=== PATIENT | male | born 1980 | race Caucasian/White ===

== ENCOUNTER 2017-01-20 23:01 | Emergency (ER) | payer BC ==
[2017-01-20] MEDS ORDERED: Bacitracin Oint 1 GM U/D Packet TOP ONE (23:26)
[2017-01-20] MEDS ORDERED: Diphtheria,Pertussis(Acell),Tetanus Vaccine 0.5 ML Syringe IM ONE (23:28)
--- NOTE | 2017-01-20 23:29 | EDM.PDOC ---
ED HPI GENERAL MEDICAL PROBLEM - General Chief Complaint: Bite:Animal, Insect Stated Complaint: DOG BITE RT LEG Time Seen by Provider: 01/20/17 23:23 Source of Information: Reports: Patient, RN - History of Present Illness INITIAL COMMENTS - FREE TEXT/NARRATIVE: dog bite from the neighbor dog dustin. IT was a [place]. Law enforcement is involved and the dog will be observed. He was riding a bike when the dog bit. No other injury except right lateral thigh. Right Upper Leg Pain Score (Numeric/FACES): 5 - Related Data Allergies Allergy/AdvReac Type Severity Reaction Status Date / Time No Known Allergies Allergy Verified 01/20/17 23:06 Home Meds: Home Meds . [No Known Home Meds] 01/20/17 [History] Past Medical History HEENT History: Reports: None Cardiovascular History: Reports: None Respiratory History: Reports: None Gastrointestinal History: Reports: None Genitourinary History: Reports: None Musculoskeletal History: Reports: None Psychiatric History: Reports: None Endocrine/Metabolic History: Denies: Diabetes, Type II - Infectious Disease History Infectious Disease History: Reports: Chicken Pox, Influenza - Past Surgical History HEENT Surgical History: Reports: None GI Surgical History: Reports: None Social & Family History - Tobacco Use Smoking Status *Q: Current Every Day Smoker Years of Tobacco use: 21 Packs/Tins Daily: 0.5 ED ROS GENERAL - Review of Systems Review Of Systems: See Below Respiratory: Denies: Shortness of Breath Free Text/Narrative/Comment: no other injury. ED EXAM, ANIMAL BITE - Physical Exam Exam: See Below General Appearance: Alert, No Apparent Distress Nose: Normal Inspection Head: Atraumatic Respiratory/Chest: No Respiratory Distress Extremities: Other (right lateral thigh with a 15 x 10 cm area of bruising with some areas of abrasion and small areas of avulsed tissue to the subcutaneous region. NO injury to the layer of fascia. No area of denuded skin greater than 0.5 x 0.5 cm. ) Neurological: Alert, Oriented, Normal Cognition Course - Vital Signs Last Recorded V/S: Last Vital Signs Temp 97.7 F 01/20/17 23:07 Pulse 94 01/20/17 23:07 Resp 20 01/20/17 23:07 BP 130/74 01/20/17 23:07 Pulse Ox 99 01/20/17 23:07 - Re-Assessments/Exams Free Text/Narrative Re-Assessment/Exam: 01/20/17 23:28 wound cleansed with hibiclens. tetanus booster antibiotic ointment and clean dressing. advised regarding need to observe the animal and if ill in the next ten days then the animal should be tested for rabies. Departure - Departure Time of Disposition: 23:27 Disposition: Home, Self-Care 01 Condition: Good Clinical Impression: Dog bite - Discharge Information Instructions: Animal Bite, [id number] Forms: ED Department Discharge Additional Instructions: augmentin 875 mg bid x seven days keep wound clean with gentle soap and water cleansing daily recheck for signs of infection
[2017-01-20 23:53] VITALS: BP 114/70
== END 2017-01-20 23:49 | disposition home or self-care (01) ==
LOC: MW.ED 23:01
DX: S71.151A Open bite, right thigh, initial encounter (principal); F17.210 Nicotine dependence, cigarettes, uncomplicated; Z23 Encounter for immunization; W54.0XXA Bitten by dog, initial encounter
CPT/HCPCS: 90471; 90715; 99283; 99283-25

== ENCOUNTER 2021-10-25 09:44 | Emergency (ER) | payer BC, OTHER ==
[2021-10-25] MEDS ORDERED: Dexamethasone 10 MG/ML SDV IVPUSH ONE (09:57)
[2021-10-25 09:59] VITALS: BP 119/86; PULSE 93
[2021-10-25] MEDS ORDERED: diphenhydrAMINE 25 MG Cap PO ONE (10:00)
== END 2021-10-25 10:21 | disposition home or self-care (01) ==
LOC: MW.ED 09:44
DX: R22.0 Localized swelling, mass and lump, head (principal); Z91.048 Other nonmedicinal substance allergy status
CPT/HCPCS: 96374; 99283; A9270; J1100

== ENCOUNTER 2021-10-28 13:16 | Emergency (ER) | payer BC ==
[2021-10-28] MEDS ORDERED: Benzocaine 20% Topical Spray UD MUCMEM STA (13:54)
[2021-10-28] MEDS ORDERED: Clindamycin HCl 150 MG Cap PO STA (13:55)
[2021-10-28] MEDS ORDERED: Lidocaine 1% 5 ML VIAL INJECT STA (13:55)
[2021-10-28 14:43] VITALS: BP 112/77; PULSE 80
== END 2021-10-28 14:43 | disposition home or self-care (01) ==
LOC: MW.ED 13:16
DX: K04.7 Periapical abscess without sinus (principal); Z91.048 Other nonmedicinal substance allergy status
CPT/HCPCS: 41008; 99282; A9270; 10060; 99284